=== PATIENT | male | born 1965 | race Asian ===

== ENCOUNTER 2022-04-06 15:49 | Inpatient (IN) | payer OTHER ==
[~2022-04-06] VITALS: Ht 175.3 cm; Wt 87.6 kg
[2022-04-06 16:21] VITALS: BP_SYST 149
[2022-04-06 17:37] LABS: BASOPHILS % (AUTO) 0.8 % (0.0-2.0); EOSINOPHILS # (AUTO) 0.1 K/uL (0.0-0.4); EOSINOPHILS % (AUTO) 1.7 % (0.0-4.0); HEMATOCRIT 41.4 % (36-54); HEMOGLOBIN 13.9 g/dL (14.0-18.0); LYMPHOCYTES # (AUTO) 1.5 K/uL (1.0-5.5); LYMPHOCYTES % (AUTO) 25.9 % (20.5-51.5); MEAN CORPUSCULAR HEMOGLOBIN 30 pg (27-31); MEAN CORPUSCULAR HGB CONC 34 % (32-36); MEAN CORPUSCULAR VOLUME 90 fL (79.0-98.0); MONOCYTES # (AUTO) 0.5 K/uL (0.0-1.0); NEUTROPHILS # (AUTO) 3.6 K/uL (1.8-7.7); NEUTROPHILS % (AUTO) 63.6 % (40.0-70.0); PLATELET COUNT (AUTO) 322 K/uL (130-430); RED BLOOD CELL COUNT(AUTO) 4.59 MIL/uL (4.2-6.2); RED CELL DISTRIBUTION WIDTH 13.9 % (9.0-15.0); WHITE BLOOD COUNT (AUTO) 5.7 K/uL (4.8-10.8)
[2022-04-06 17:48] LABS: ANION GAP 12 (5-15); CHLORIDE 103 mmol/L (98-107); CREATININE 1.18 mg/dL (0.55-1.30); GFR AFRICAN AMERICAN 83 mL/min (>90); GLUCOSE 186 mg/dL (70-99); UREA NITROGEN, BLOOD 22 mg/dL (8-21)
[2022-04-06 17:51] LABS: INR 0.9 (0.80-1.20)
[2022-04-06 18:01] LABS: ALANINE AMINOTRANSFERASE 59 U/L (12-78); ALBUMIN 4.1 g/dL (3.4-4.8); ASPARTATE AMINOTRANSFERASE 20 U/L (10-37); C-REACTIVE PROTEIN QUANT < 0.2 mg/dL (0-0.5); TOTAL BILIRUBIN 0.4 mg/dL (0.0-1.0)
[2022-04-06] MEDS ORDERED: VANCOMYCIN HCL 1,000 MG in NS 250 ML IV ONE (18:15)
[2022-04-06 18:19] LABS: BILIRUBIN,URINE NEGATIVE (NEGATIVE); BLOOD, URINE NEGATIVE (NEGATIVE); CLARITY/URINE CLEAR (CLEAR); COLOR,URINE YELLOW (YELLOW); GLUCOSE,URINE 3+ (NEGATIVE); KETONES,URINE TRACE (NEGATIVE); LEUKOCYTE ESTERASE ,URINE NEGATIVE (NEGATIVE); NITRITE, URINE NEGATIVE (NEGATIVE); PROTEIN URINE NEGATIVE (NEGATIVE); UROBILINOGEN,URINE 0.2 (0.2-1.0)
[2022-04-06 18:25] LABS: ERYTHROCYTE SEDIMENTATION RATE 7 MM/HR (0-15)
[2022-04-06 18:37] LABS: BACTERIA,URINE None Seen /HPF (None Seen); MUCUS,URINE 1+ /LPF (None Seen); RBC,URINE 0-3 /HPF (0-3); WBC,URINE 0-3 /HPF (0-3)
[2022-04-06] MEDS ORDERED: VANCOMYCIN HCL 1000 MG/VIAL IV ONE (18:38)
[2022-04-06] MEDS ORDERED: METF-518 PO (22:53)
[2022-04-06] MEDS ORDERED: PIOG15TA8 PO (22:53)
[2022-04-06] MEDS ORDERED: NIAC250T18 PO (22:53)
[2022-04-06] MEDS ORDERED: EMPA25TA PO (22:53)
[2022-04-06] MEDS ORDERED: GLIP5TAB26 PO (22:53)
[2022-04-06] MEDS ORDERED: SIMV-343 PO (22:53)
[2022-04-06] MEDS ORDERED: GLIP10TA21 PO (22:53)
[2022-04-06] MEDS ORDERED: SYN50 PO (22:53)
[2022-04-07] MEDS: HYDROcodone/ACETAMIN 5-325 MG TAB (NORCO/ VICODIN) PO PRN ×3 (00:48→21:27)
[2022-04-07] MEDS ORDERED: VANCOMYCIN HCL 1000 MG/VIAL IV ONE ×2 (06:20→22:47)
[2022-04-07] MEDS ORDERED: VANCOMYCIN HCL 1 GM/NS PREMIX 250 ML IV ONE (07:00)
[2022-04-07] MEDS ORDERED: LEVOTHYROXINE SODIUM 0.05 MG TABLET PO ONE (15:30)
[2022-04-07 20:00] VITALS: BP_SYST 140
[2022-04-07] MEDS ORDERED: glipiZIDE XL 5 MG TAB ( GLUCOTROL XL) PO SCH (21:00)
[2022-04-07] MEDS ORDERED: ACETAMINOPHEN 500 MG TABLET PO PRN (21:30)
[2022-04-07 21:40] VITALS: BP_SYST 140
[2022-04-07] MEDS: VANCOMYCIN HCL 1,000 MG in NS 250 ML IV SCH (23:24)
[2022-04-08] VITALS: BP_SYST 136
[2022-04-08] MEDS: VANCOMYCIN HCL 1,000 MG in NS 250 ML IV SCH ×3 (04:54→17:34)
[2022-04-08] MEDS: LEVOTHYROXINE SODIUM 0.05 MG TABLET PO SCH (04:55)
[2022-04-08] MEDS ORDERED: METF-381 PO (06:36)
[2022-04-08] MEDS ORDERED: NIAC-9 PO (06:40)
[2022-04-08] MEDS ORDERED: GLIP10TA11 PO (07:12)
[2022-04-08 08:00] VITALS: BP_SYST 139
[2022-04-08] MEDS: NIACIN 500 MG TABLET.SA PO SCH (09:07)
[2022-04-08] MEDS: metFORMIN HCL 500 MG TABLET PO SCH ×2 (09:07→17:41)
[2022-04-08] MEDS: SIMVASTATIN 20 MG TABLET PO SCH (09:08)
[2022-04-08] MEDS: PIOGLITAZONE HCL 15 MG TABLET PO SCH (09:08)
[2022-04-08 12:01] VITALS: BP_SYST 148
[2022-04-08 16:00] VITALS: BP_SYST 146
[2022-04-08 20:00] VITALS: BP_SYST 136
[2022-04-09] MEDS: VANCOMYCIN HCL 1,000 MG in NS 250 ML IV SCH ×3 (03:40→21:59)
[2022-04-09] MEDS: LEVOTHYROXINE SODIUM 0.05 MG TABLET PO SCH (03:41)
[2022-04-09] MEDS: HYDROcodone/ACETAMIN 5-325 MG TAB (NORCO/ VICODIN) PO PRN ×2 (03:52→22:07)
[2022-04-09 04:00] VITALS: BP_SYST 132
[2022-04-09 07:57] LABS: CALCIUM 8.4 mg/dL (8.4-11.0); CREATININE 0.74 mg/dL (0.55-1.30)
[2022-04-09 08:02] LABS: BASOPHILS # (AUTO) 0.1 K/uL (0.0-0.2); BASOPHILS % (AUTO) 0.7 % (0.0-2.0); EOSINOPHILS # (AUTO) 0.1 K/uL (0.0-0.4); EOSINOPHILS % (AUTO) 1.4 % (0.0-4.0); HEMATOCRIT 40.8 % (36-54); HEMOGLOBIN 13.6 g/dL (14.0-18.0); LYMPHOCYTES # (AUTO) 1.2 K/uL (1.0-5.5); LYMPHOCYTES % (AUTO) 13.9 % (20.5-51.5); MEAN CORPUSCULAR HEMOGLOBIN 30 pg (27-31); MEAN CORPUSCULAR HGB CONC 33 % (32-36); MEAN CORPUSCULAR VOLUME 90 fL (79.0-98.0); MONOCYTES # (AUTO) 0.7 K/uL (0.0-1.0); MONOCYTES % (AUTO) 8.7 % (1.7-9.3); NEUTROPHILS # (AUTO) 6.3 K/uL (1.8-7.7); NEUTROPHILS % (AUTO) 75.3 % (40.0-70.0); PLATELET COUNT (AUTO) 268 K/uL (130-430); RED BLOOD CELL COUNT(AUTO) 4.54 MIL/uL (4.2-6.2); RED CELL DISTRIBUTION WIDTH 13.9 % (9.0-15.0); WHITE BLOOD COUNT (AUTO) 8.3 K/uL (4.8-10.8)
[2022-04-09 08:24] VITALS: BP_SYST 125
[2022-04-09] MEDS: PIOGLITAZONE HCL 15 MG TABLET PO SCH (08:26)
[2022-04-09] MEDS: NIACIN 500 MG TABLET.SA PO SCH (08:26)
[2022-04-09] MEDS: metFORMIN HCL 500 MG TABLET PO SCH ×2 (08:26→18:04)
[2022-04-09] MEDS: SIMVASTATIN 20 MG TABLET PO SCH (08:26)
[2022-04-09 12:00] VITALS: BP_SYST 138
[2022-04-09] MEDS ORDERED: VANC1.2525 IVPB (12:30)
[2022-04-09 14:00] LABS: PROTHROMBIN TIME 9.8 SECS (9.5-12.5)
[2022-04-09 16:30] VITALS: BP_SYST 143
[2022-04-09 20:00] VITALS: BP_SYST 139
[2022-04-10 00:30] VITALS: BP_SYST 139
[2022-04-10 04:00] VITALS: BP_SYST 136
== END 2022-04-10 05:55 | disposition home or self-care (01) | DRG 603 ==
LOC: SED 15:49 → SMU 20:15
PROVIDERS: ADMIT Internal Medicine; ATTEND Internal Medicine
PROC: 05HY33Z Insertion of Infusion Device into Upper Vein, Percutaneous Approach (ICD-10-PCS; principal; 2022-04-09)
PROC: B54NZZA Ultrasonography of Left Upper Extremity Veins, Guidance (ICD-10-PCS; 2022-04-09)
DX: L03.115 Cellulitis of right lower limb (principal); E11.9 Type 2 diabetes mellitus without complications; E03.9 Hypothyroidism, unspecified; I10 Essential (primary) hypertension; E66.9 Obesity, unspecified; Z20.822 Contact with and (suspected) exposure to COVID-19; Z79.899 Other long term (current) drug therapy; Z88.0 Allergy status to penicillin; Z68.28 Body mass index [BMI] 28.0-28.9, adult
CPT/HCPCS: 36415; 73700-TC; 76376; 80048; 80053; 80202; 81000; 82962; 83605; 85025; 85610-TC; 85651-TC; 85730-TC; 86140; 87040; 87086; 99285; J3370; J7050